=== PATIENT | female | born 1975 | race Caucasian/White ===

== ENCOUNTER 2017-12-11 20:45 | Observation (INO) | payer MEDICAID, OTHER ==
[~2017-12-11] VITALS: Ht 165.1 cm; Wt 84.0 kg
[~2017-12-11 20:45] MED LIST: PRED20 PO; RANI150 PO
[2017-12-11 21:00] VITALS: BP 194/84; PULSE 90; RESP 18; TEMP 98.8
[2017-12-11] MEDS ORDERED: SODIUM CHLORIDE 0.9% FLUSH 10 ML FLUSH IVF PRN (21:30)
--- NOTE | 2017-12-11 21:30 | PD ---
HPI Chief Complaint: Cardiac Complaint Time Seen by Provider: 21:17 Travel History International Travel<30 days: No Contact w/Intl Traveler<30days: No Traveled to known affect area: No History of Present Illness HPI 42-year-old female presents to the emergency department by private transportation the care of her spouse for evaluation of dizziness not feeling well left-sided neck pain and tingling to the left upper extremity. Patient has had symptoms for a while but worsened over the past 2 days. Patient also complains of left-sided chest pain radiating into the left subscapular region. Patient states she went to her chiropractor for an adjustment yesterday felt somewhat better but symptoms are persistent. Patient taken a total of 3 doses of 81 mg aspirin in the last 24 hours. Patient reports no symptom relief after aspirin use. Patient denies fever chills sinus pressure drainage sore throat earache neck stiffness shortness of breath sweats nausea vomiting abdominal pain flank pain upper or lower extremity numbness tingling weakness except for the intermittent tingling that she is experienced for some time to the left upper extremity. Patient had no change in mentation. Patient has had 5/10 intensity headache is not sudden onset thunderclap or worst ever. Patient denies any headache pain at this time does note some not feeling well and not feeling herself that she describes as a 2/10 discomfort. Patient had no near fall and no near-syncope no syncope and no balance disturbance. Patient unknown history of hypertension denies known history of dyslipidemia diabetes tobaccoism has history of CAD with father starting heart disease in his 40s and having 5 vessel CABG at age 55. [facility] Past Medical History Narrative Medical anemia, pud, [id number]; no tobacco, no alcohol, no substance use Anemia: Yes Cancer: No Cardiovascular Problems: No Endocrine: No Genitourinary: No Immune Disorder: No Musculoskeletal: No Neurologic: No Psychiatric: No Reproductive: No Respiratory: No Ulcer: Yes ?: Not LMP: 11/17/17 : 2 Para: 2 Social History Alcohol Use: No Tobacco Use: No Substance Use: No Allergies-Medications (Allergen,Severity, Reaction): Coded Allergies: No Known Allergies (Verified Allergy, Unknown, none, 12/11/17) Reported Meds & Prescriptions Reported Meds & Active Scripts Active Deltasone 20 Mg Tab (Prednisone) 20 Mg Tab 40 Mg PO DAILY 3 Days Zantac 150 Mg Tab (Ranitidine HCl) 150 Mg Tab 150 Mg PO BID 10 Days Review of Systems Except as stated in HPI: all other systems reviewed are Neg General / Constitutional: No: Fever, Chills Eyes: No: Diploplia, Blurred Vision, Visual changes HENT: Positive: Headaches, Vertigo, Neck Pain (left sided), No: Lightheadedness , Congestion, Neck Stiffness Cardiovascular: Positive: Chest Pain or Discomfort (left sided), No: Palpitations, Diaphoresis, Syncope Respiratory: No: Cough, Shortness of Breath, Wheezing Gastrointestinal: No: Nausea, Vomiting, Diarrhea, Abdominal Pain Genitourinary: No: Dysuria, Flank Pain Musculoskeletal: Positive: Pain (LUE), No: Myalgias, Arthralgias, Limited ROM Skin: No Rash Neurologic: Positive: Weakness, Dizziness, Headache, Paresthesia (LUE), No: Syncope, Focal Abnormalities, Coordination Problem, Ataxia, Change in Mentation , Slurred Speech Psychiatric: No: Anxiety Endocrine: No: Heat Intolerance Hematologic/Lymphatic: No: Lymph Node Enlargement Physical Exam Narrative GENERAL: Well-developed well-nourished female no acute distress no respiratory distress; GCS 15 SKIN: Warm and dry. HEAD: Atraumatic. Normocephalic. EYES: Pupils equal and round. No scleral icterus. No injection or drainage. ENT: No nasal bleeding or discharge. Mucous membranes pink and moist. NECK: Trachea midline. No JVD. Supple no meningismus no nuchal rigidity; no midline tenderness to direct palpation along the cervical spine no bony step- off. Reproducible tenderness along the left trapezius musculature. CARDIOVASCULAR: Regular rate and rhythm. Radial dorsalis pedis pulses 2+ to palpation bilaterally. RESPIRATORY: No accessory muscle use. Clear to auscultation. Breath sounds equal bilaterally. GASTROINTESTINAL: Abdomen soft, non-tender, nondistended. Hepatic and splenic margins not palpable. MUSCULOSKELETAL: Extremities without clubbing, cyanosis, or edema. No obvious deformities. NEUROLOGICAL: Awake and alert. GCS 15 per no obvious cranial nerve deficits. Motor grossly within normal limits. Five out of 5 muscle strength in the arms and legs. No pronator drift. No limb ataxia. DTRs 2+ and equal bilaterally. Normal speech. PSYCHIATRIC: Appropriate mood and affect; insight and judgment normal. Data Data Last Documented VS Vital Signs Date Time Temp Pulse Resp B/P (MAP) Pulse Ox O2 Delivery O2 Flow Rate FiO2 12/11/17 21:24 87 15 99 Room Air 12/11/17 21:00 98.8 194/84 (120) Orders Orders Electrocardiogram (12/11/17 ) Electrocardiogram (12/11/17 21:17) Complete Blood Count With Diff (12/11/17 21:17) Comprehensive Metabolic Panel (12/11/17 21:17) Magnesium (Mg) (12/11/17 21:17) Ckmb (Isoenzyme) Profile (12/11/17 21:17) Troponin I (12/11/17 21:17) Act Partial Throm Time (Ptt) (12/11/17:) Prothrombin Time / Inr (Pt) (12/11/17:) Urinalysis - C+S If Indicated (12/11/17 21:) Chest, Single Ap (12/11/17 21:17) Ct Brain W/O Iv Contrast(Rout) (12/11/17 21:17) Ct Cerv Spine W/O Contrast (12/11/17 21:17) Blood Glucose (12/11/17 21:17) Ecg Monitoring (12/11/17 21:17) Iv Access Insert/Monitor (12/11/17 21:17) Oximetry (12/11/17 21:17) Sodium Chloride 0.9% Flush (Ns Flush) (12/11/17 21:30) Orthostatic Vital Signs (12/11/17 21:17) Aspirin Chew (Aspirin Chew) (12/11/17 22:30) Ketorolac Inj (Toradol Inj) (12/11/17 22:30) Admit Order (Ed Use Only) (12/11/17 ) Wallpaper Consultant / Telemetry RAMA.Q8H (12/11/17 22:41) Diet Heart Healthy (12/12/17 Breakfast) Activity Oob With Assistance (12/11/17 22:41) Notify Dr: Other (12/11/17 22:41) Activity Bed Rest With Brp (12/11/17 22:41) Vital Signs (Adult) Q4H (12/11/17 22:41) Cardiac Rhythm .As Directed (12/11/17 22:41) Notify Dr: Other .PRN (12/11/17 22:41) Notify Parameters (12/11/17 22:41) Resp Oxygen Nasal Cannula (12/11/17 ) Ckmb (Isoenzyme) Profile (12/12/17 00:40) Ckmb (Isoenzyme) Profile (12/12/17 03:40) Troponin I (12/12/17 00:40) Troponin I (12/12/17 03:40) Electrocardiogram (12/12/17 00:40) Electrocardiogram (12/12/17 03:40) ^ Obtain (12/11/17 22:41) Sodium Chloride 0.9% Flush (Ns Flush) (12/11/17 22:45) Sodium Chloride 0.9% Flush (Ns Flush) (12/12/17 09:00) Nitroglycerin Sl (Nitrostat Sl) (12/11/17 22:45) Aspirin (Aspirin) (12/12/17 09:00) Wallpaper Consultant / Telemetry RAMA.Q8H (12/11/17 22:41) Labs Laboratory Tests Test 12/11/17 21:41 White Blood Count 8.7 TH/MM3 Red Blood Count 5.18 MIL/MM3 Hemoglobin 10.8 GM/DL Hematocrit 34.1 % Mean Corpuscular Volume 65.8 FL Mean Corpuscular Hemoglobin 20.8 PG Mean Corpuscular Hemoglobin Concent 31.7 % Red Cell Distribution Width 19.0 % Platelet Count 286 TH/MM3 Mean Platelet Volume 7.9 FL Neutrophils (%) (Auto) 65.3 % Lymphocytes (%) (Auto) 25.8 % Monocytes (%) (Auto) 7.0 % Eosinophils (%) (Auto) 1.5 % Basophils (%) (Auto) 0.4 % Neutrophils # (Auto) 5.7 TH/MM3 Lymphocytes # (Auto) 2.2 TH/MM3 Monocytes # (Auto) 0.6 TH/MM3 Eosinophils # (Auto) 0.1 TH/MM3 Basophils # (Auto) 0.0 TH/MM3 CBC Comment DIFF FINAL Differential Comment Prothrombin Time 10.5 SEC Prothromb Time International Ratio 1.0 RATIO Activated Partial Thromboplast Time 25.7 SEC Blood Urea Nitrogen 10 MG/DL Creatinine 0.78 MG/DL Random Glucose 83 MG/DL Total Protein 8.3 GM/DL Albumin 4.0 GM/DL Calcium Level 8.9 MG/DL Magnesium Level 2.2 MG/DL Alkaline Phosphatase 82 U/L Aspartate Amino Transf (AST/SGOT) 14 U/L Alanine Aminotransferase (ALT/SGPT) 29 U/L Total Bilirubin 0.4 MG/DL Sodium Level 139 MEQ/L Potassium Level 3.7 MEQ/L Chloride Level 105 MEQ/L Carbon Dioxide Level 26.2 MEQ/L Anion Gap 8 MEQ/L Estimat Glomerular Filtration Rate 81 ML/MIN Total Creatine Kinase 63 U/L Troponin I LESS THAN 0.02 NG/ML MDM Medical Decision Making Medical Screen Exam Complete: Yes Emergency Medical Condition: Yes Medical Record Reviewed: Yes Interpretation(s) EKG: Normal sinus rhythm rate [address] elevation injury pattern or ectopy noted CBC & BMP Diagram 12/11/17 21:41 Total Protein 8.3 H, Albumin 4.0, Calcium Level 8.9, Magnesium Level 2.2, Alkaline Phosphatase 82, Aspartate Amino Transf (AST/SGOT) 14 L, Alanine Aminotransferase (ALT/SGPT) 29, Total Bilirubin 0.4 Vital Signs Date Time Temp Pulse Resp B/P (MAP) Pulse Ox O2 Delivery O2 Flow Rate FiO2 12/11/17 21:24 87 15 99 Room Air 12/11/17 21:00 98.8 90 18 194/84 (120) Troponin I: Less than 0.02, not elevated Differential Diagnosis Dizziness, uncontrolled hypertension, chest pain, atypical chest pain, ACS, CO, aortic dissection, TIA, CVA, musculoskeletal pain Narrative Course Patient placed on food editor with continuous pulse oximetry IV access obtained specimens collected and sent for resulting Patient risk factor profile hypertension untreated, premature onset heart disease father 5 way bypass at age 55 with heart disease in 40s EKG sinus rhythm no acute injury pattern change; troponin I less than 0.02, not elevated CK 63, not elevated Patient given aspirin 162 mg 1 dose and is aware of plan for observation admission to chest pain center per protocol; patient with spouse at bedside is agreeable to observation admission Physician Communication Physician Communication OBS per [facility] protocol Diagnosis Primary Impression: Chest pain Admitting Information Admitting Physician Requests: Observation Marsha Walker MD Dec 11, 2017 21:30
[2017-12-11 21:53] LABS: AUTOMATED NEUTROPHIL # 5.7 TH/MM3 (1.8-7.7); BASOPHIL % 0.4 % (0.0-2.0); EOSINOPHIL # 0.1 TH/MM3 (0-0.4); EOSINOPHIL % 1.5 % (0.0-4.0); HEMATOCRIT 34.1 % (35.0-46.0); HEMOGLOBIN 10.8 GM/DL (11.6-15.3); LYMPH % 25.8 % (9.0-44.0); LYMPHOCYTE # 2.2 TH/MM3 (1.0-4.8); MEAN CELL VOLUME 65.8 FL (80.0-100.0); MEAN CORPUSCULAR HEMOGLOBIN 20.8 PG (27.0-34.0); MEAN CORPUSCULAR HGB CONC 31.7 % (32.0-36.0); MEAN PLATELET VOLUME 7.9 FL (7.0-11.0); MONOCYTE # 0.6 TH/MM3 (0-0.9); NEUT % 65.3 % (16.0-70.0); PLATELET COUNT 286 TH/MM3 (150-450); RED BLOOD COUNT 5.18 MIL/MM3 (4.00-5.30); WHITE BLOOD COUNT 8.7 TH/MM3 (4.0-11.0)
[2017-12-11 22:04] LABS: PROTHROMBIN TIME - PATIENT 10.5 SEC (9.8-11.6)
--- NOTE | 2017-12-11 22:05 | RADRPT ---
EXAM DATE/TIME: 12/11/2017 21:49 [facility] COMPARISON: No previous studies available for comparison. INDICATIONS : Dizziness. RADIATION DOSE: 56.35 CTDIvol (mGy) MEDICAL HISTORY : Anemia. SURGICAL HISTORY : None. ENCOUNTER: Initial ACUITY: 2 weeks PAIN SCALE: 0/10 LOCATION: cranial TECHNIQUE: Multiple contiguous axial images were obtained of the head. Using automated exposure control and adj ustment of the mA and/or kV according to patient size, radiation dose was kept as low as reasonably a chievable to obtain optimal diagnostic quality images. DICOM format image data is available electro nically for review and comparison. FINDINGS: CEREBRUM: The ventricles are normal for age. No evidence of midline shift, mass lesion, hemorrhage or acute in farction. No extra-axial fluid collections are seen. POSTERIOR FOSSA: The cerebellum and brainstem are intact. The 4th ventricle is midline. The cerebellopontine angle i s unremarkable. EXTRACRANIAL: The visualized portion of the orbits is intact. SKULL: The calvaria is intact. No evidence of skull fracture. CONCLUSION: Normal examination. Willam Delgado MD on December 11, 2017 at 22:02 Board Certified Radiologist. This report was verified electronically.
--- NOTE | 2017-12-11 22:07 | RADRPT ---
EXAM DATE/TIME: 12/11/2017 21:49 [facility] COMPARISON: No previous studies available for comparison. INDICATIONS : Dizziness, neck pain. RADIATION DOSE: 19.72 CTDIvol (mGy) MEDICAL HISTORY : Anemia. SURGICAL HISTORY : None. ENCOUNTER: Initial ACUITY: 2 weeks PAIN SCALE: 6/10 LOCATION: neck TECHNIQUE: Volumetric scanning of the cervical spine was performed. Multiplanar reconstructions in the sagittal, coronal and oblique axial planes were performed. Using automated exposure control and adjustment o f the mA and/or kV according to patient size, radiation dose was kept as low as reasonably achievable to obtain optimal diagnostic quality images. DICOM format image data is available electronically f or review and comparison. FINDINGS: There is mild upper cervical kyphosis. No significant spondylolisthesis. There is no evidence of frac ture or destructive change. No bony canal or foraminal compromise is identified. There is no evidence of paraspinal mass or hematoma. CONCLUSION: Mild cervical kyphosis. No acute bony findings. Willam Delgado MD on December 11, 2017 at 22:03 Board Certified Radiologist. This report was verified electronically.
--- NOTE | 2017-12-11 22:12 | RADRPT ---
EXAM DATE/TIME: 12/11/2017 21:59 [facility] COMPARISON: No previous studies available for comparison. INDICATIONS : Left sided chest pain. MEDICAL HISTORY : None. SURGICAL HISTORY : None. ENCOUNTER: Initial ACUITY: 1 day PAIN SCORE: 4/10 LOCATION: chest FINDINGS: A single view of the chest demonstrates the lungs to be symmetrically aerated without evidence of mas s, infiltrate or effusion. The cardiomediastinal contours are unremarkable. Osseous structures are intact. CONCLUSION: No acute disease. Willam Delgado MD on December 11, 2017 at 22:09 Board Certified Radiologist. This report was verified electronically.
[2017-12-11 22:26] LABS: ALT (GPT) 29 U/L (10-53); AST (GOT) 14 U/L (15-37); BICARBONATE 26.2 MEQ/L (21.0-32.0); BLOOD UREA NITROGEN 10 MG/DL (7-18); CALCIUM 8.9 MG/DL (8.5-10.1); CHLORIDE 105 MEQ/L (98-107); CREATININE 0.78 MG/DL (0.50-1.00); GLOMERULAR FILTRATION RATE 81 ML/MIN (>89); GLUCOSE,RANDOM 83 MG/DL (74-106); MAGNESIUM 2.2 MG/DL (1.5-2.5); SODIUM (NA) 139 MEQ/L (136-145)
[2017-12-11] MEDS ORDERED: KETOROLAC TROMETHAMINE 30 MG/ML (IVP) VIAL IV PUSH ONE (22:30)
[2017-12-11] MEDS ORDERED: ASPIRIN 81 MG CHEW TAB CHEW ONE (22:30)
[2017-12-11 22:31] LABS: ALKALINE PHOSPHATASE 82 U/L (45-117); TOTAL BILIRUBIN ADULT 0.4 MG/DL (0.2-1.0); TOTAL PROTEIN 8.3 GM/DL (6.4-8.2); TROPONIN I LESS THAN 0.02 NG/ML (0.02-0.05)
[2017-12-11] MEDS ORDERED: NITROGLYCERIN 0.4 MG SL 25 TABS/BTL SL PRN (22:45)
[2017-12-11] MEDS ORDERED: SODIUM CHLORIDE 0.9% FLUSH 10 ML FLUSH IV FLUSH PRN (22:45)
[2017-12-11 23:00] LABS: BACTERIA, URINE RARE /hpf; BILIRUBIN, URINE NEG (NEG); BLOOD, URINE NEG (NEG); GLUCOSE,URINE NEG (NEG); KETONE, URINE NEG (NEG); MUCUS URINE FEW /lpf (OCC); NITRITE,URINE NEG (NEG); SQUAMOUS EPITHELIAL CELL URINE 5 /hpf (0-5); URINE COLOR YELLOW (YELLW/STRAW); URINE LEUKOCYTE ESTERASE NEG (NEG)
[2017-12-12] VITALS (8 sets, daily range): BP systolic 132–153; BP diastolic 62–77; PULSE 66–85; RESP 15–20; TEMP 98–98.1; O2SAT 98–100
[2017-12-12 01:10] LABS: TROPONIN I LESS THAN 0.02 NG/ML (0.02-0.05)
[2017-12-12 04:28] LABS: TROPONIN I LESS THAN 0.02 NG/ML (0.02-0.05)
[2017-12-12] MEDS ORDERED: MECLIZINE HCL 25 MG TAB PO ONE (08:30)
[2017-12-12] MEDS ORDERED: ASPIRIN 325 MG TAB PO SCH (09:00)
[2017-12-12] MEDS ORDERED: SODIUM CHLORIDE 0.9% FLUSH 10 ML FLUSH IV FLUSH SCH (09:00)
--- NOTE | 2017-12-12 09:44 | HHI.HP ---
[facility] Primary Care Physician Claude Weller M.D. Chief Complaint Chest pain History of Present Illness This is a 42-year-old female the presents to ED with plan of dizziness and chest discomfort. Patient states her symptoms began a little over week ago. She has been feeling imminently dizzy. Seems to be worse nor brought on with certain position changes. She is unsteady when it happens. At times she may or may not have had a headache during this. She also complains of having a left upper chest radiating to left upper arm intermittently for the last 2 days. She thought that it may be related to her neck and saw a chiropractor and had manipulation thought she felt better for a little bit but symptoms persisted. Currently denies chest discomfort. She denies having any syncopal episodes. Denies fevers or chills. Denies . Review of Systems General: Patient denies fevers, chills recent, and recent travel HEENT: Complained of headache. Patient denies sore throat, difficulty swallowing. Cardiovascular: Has the chest discomfort as mentioned above. Denies sensation of heart beating rapidly or irregularly. No syncope. Denies diaphoresis. Respiratory: Denies shortness of breath or inspirational chest discomfort. Denies coughing wheezing or hemoptysis. GI: Patient denies nausea, vomiting, diarrhea, abdominal pain, bloody stools. Musculoskeletal: Patient denies joint pain or edema. Denies calf pain or edema. Neurovascular: When of headache. Complaint of dizziness. Patient denies numbness, tingling, weakness in extremities. Endocrine: Denies polyuria and polydipsia. Hematologic: Denies easy bruising. Skin: Denies rash or itching. Past Family Social History Allergies: Coded Allergies: No Known Allergies (Verified Allergy, Unknown, none, 12/11/17) Past Medical History Denies hypertension, hyperlipidemia, diabetes, and CAD. Past Surgical History Noncontributory. Reported Medications Reported Meds & Active Scripts Active Deltasone 20 Mg Tab (Prednisone) 20 Mg Tab 40 Mg PO DAILY 3 Days Zantac 150 Mg Tab (Ranitidine HCl) 150 Mg Tab 150 Mg PO BID 10 Days Active Ordered Medications Current Medications Medications (Trade) Dose Ordered Sig/Hannah Route Start Time Stop Time Status Last Admin (NS Flush) 2 ml UNSCH PRN IVF 12/11/17 21:30 (NS Flush) 2 ml UNSCH PRN IV FLUSH 12/11/17 22:45 (NS Flush) 2 ml BID IV FLUSH 12/12/17 09:00 12/12/17 08:33 (Nitrostat Sl) 0.4 mg Q5M PRN SL 12/11/17 22:45 (Aspirin) 325 mg DAILY PO 12/12/17 09:00 12/12/17 08:33 Family History Her father had a CABG at age 56. Social History Non-smoker. Denies alcohol or illicit drug use. Physical Exam Vital Signs Vital Signs Date Time Temp Pulse Resp B/P (MAP) Pulse Ox O2 Delivery O2 Flow Rate FiO2 12/12/17 08:02 66 15 136/62 (86) 100 Room Air 12/12/17 08:02 15 Room Air 12/12/17 08:02 66 15 136/62 (86) 99 Room Air 12/12/17 00:22 81 15 153/67 (95) 99 Room Air 12/12/17 00:00 99 12/11/17 21:24 87 15 99 Room Air 12/11/17 21:00 98.8 90 18 194/84 (120) Physical Exam GENERAL: This is a well-nourished, well-developed patient, in no apparent distress. Patient speaks in clear complete sentences. Patient is pleasant. HEENT: Head is atraumatic and normocephalic. Neck is supple without lymphadenopathy and trachea is midline. No JVD or carotid bruits. CARDIOVASCULAR: Regular rate and rhythm without murmurs, gallops, or rubs. RESPIRATORY: Clear to auscultation. Breath sounds equal bilaterally. No wheezes , rales, or rhonchi. Chest wall is nontender. No use of accessory muscles. GASTROINTESTINAL: Abdomen is nontender, nondistended. Abdomen soft. No obvious pulsatile mass or bruit. No CVA tenderness. Strong femoral pulses bilaterally. Normal bowel sounds in all quadrants. MUSCULOSKELETAL: Patient is moving upper and lower extremities freely. No calf tenderness or edema, no Homans sign. Strong pulses in upper and lower extremities. NEUROLOGICAL: Patient is alert and oriented. Cranial nerves 2-12 are grossly intact. No focal deficits and speech is clear. SKIN: No rash and turgor is normal. Laboratory Laboratory Tests Test 12/11/17 21:41 12/11/17 22:49 12/12/17 00:40 12/12/17 03:22 White Blood Count 8.7 Red Blood Count 5.18 Hemoglobin 10.8 Hematocrit 34.1 Mean Corpuscular Volume 65.8 Mean Corpuscular Hemoglobin 20.8 Mean Corpuscular Hemoglobin Concent 31.7 Red Cell Distribution Width 19.0 Platelet Count 286 Mean Platelet Volume 7.9 Neutrophils (%) (Auto) 65.3 Lymphocytes (%) (Auto) 25.8 Monocytes (%) (Auto) 7.0 Eosinophils (%) (Auto) 1.5 Basophils (%) (Auto) 0.4 Neutrophils # (Auto) 5.7 Lymphocytes # (Auto) 2.2 Monocytes # (Auto) 0.6 Eosinophils # (Auto) 0.1 Basophils # (Auto) 0.0 CBC Comment DIFF FINAL Differential Comment Prothrombin Time 10.5 Prothromb Time International Ratio 1.0 Activated Partial Thromboplast Time 25.7 Blood Urea Nitrogen 10 Creatinine 0.78 Random Glucose 83 Total Protein 8.3 Albumin 4.0 Calcium Level 8.9 Magnesium Level 2.2 Alkaline Phosphatase 82 Aspartate Amino Transf (AST/SGOT) 14 Alanine Aminotransferase (ALT/SGPT) 29 Total Bilirubin 0.4 Sodium Level 139 Potassium Level 3.7 Chloride Level 105 Carbon Dioxide Level 26.2 Anion Gap 8 Estimat Glomerular Filtration Rate 81 Total Creatine Kinase 63 55 49 Troponin I LESS THAN 0.02 LESS THAN 0.02 LESS THAN 0.02 Urine Color YELLOW Urine Turbidity CLEAR Urine pH 6.0 Urine Specific [place] 1.016 Urine Protein NEG Urine Glucose (UA) NEG Urine Ketones NEG Urine Occult Blood NEG Urine Nitrite NEG Urine Bilirubin NEG Urine Urobilinogen LESS THAN 2.0 Urine Leukocyte Esterase NEG Urine RBC 1 Urine WBC 3 Urine Squamous Epithelial Cells 5 Urine Bacteria RARE Urine Mucus FEW Microscopic Urinalysis Comment CULT NOT INDICATED Result Diagram: 12/11/17214012/11/172140 Imaging Last [address] 12/11/172116 Signed Impressions: Service Date/Time: Monday, December 11, 2017 21:49 - CONCLUSION: Normal examination. Willam Delgado MD Chest X-Ray 12/11/172116 Signed Impressions: Service Date/Time: Monday, December 11, 2017 21:59 - CONCLUSION: No acute disease. Willam Delgado MD Cervical Spine CT 12/11/172116 Signed Impressions: Service Date/Time: Monday, December 11, 2017 21:49 - CONCLUSION: Mild cervical kyphosis. No acute bony findings. Willam Delgado MD Course EKGs are sinus rhythm without significant ST segment depressions or elevations. Caprini VTE Risk Assessment Caprini VTE Risk Assessment: No/Low Risk (score <= 1) Caprini Risk Assessment Model Point Value = 1 Point Value = 2 Point Value = 3 Point Value = 5 Age 41-60 Minor surgery BMI > 25 kg/m2 Swollen legs Varicose veins or History of unexplained or recurrent spontaneous Oral contraceptives or hormone replacement Sepsis (< 1 month) Serious lung disease, including pneumonia (< 1 month) Abnormal pulmonary function Acute myocardial infarction Congestive heart failure (< 1 month) History of inflammatory bowel disease Medical patient at bed rest Age 61-74 Arthroscopic surgery Major open surgery (> 45 min) Laparoscopic surgery (> 45 min) Malignancy Confined to bed (> 72 hours) Immobilizing plaster cast Central venous access Age >= 75 History of VTE Family history of VTE Factor V Leiden Prothrombin [id number] Lupus anticoagulant Anticardiolipin antibodies Elevated serum homocysteine Heparin-induced thrombocytopenia Other congenital or acquired thrombophilia Stroke (< 1 month) Elective arthroplasty Hip, pelvis, or leg fracture Acute spinal cord injury (< 1 month) Prophylaxis Regimen Total Risk Factor Score Risk Level Prophylaxis Regimen 0-1 Low Early ambulation 2 Moderate Order ONE of the following: *Sequential Compression Device (SCD) *Heparin 5000 units SQ BID 3-4 Higher Order ONE of the following medications: *Heparin 5000 units SQ TID *Enoxaparin/Lovenox 40 mg SQ daily (WT < 150 kg, CrCl > 30 mL/min) *Enoxaparin/Lovenox 30 mg SQ daily (WT < 150 kg, CrCl > 10-29 mL/min) *Enoxaparin/Lovenox 30 mg SQ BID (WT < 150 kg, CrCl > 30 mL/min) AND/OR *Sequential Compression Device (SCD) 5 or more Highest Order ONE of the following medications: *Heparin 5000 units SQ TID (Preferred with Epidurals) *Enoxaparin/Lovenox 40 mg SQ daily (WT < 150 kg, CrCl > 30 mL/min) *Enoxaparin/Lovenox 30 mg SQ daily (WT < 150 kg, CrCl > 10-29 mL/min) *Enoxaparin/Lovenox 30 mg SQ BID (WT < 150 kg, CrCl > 30 mL/min) AND *Sequential Compression Device (SCD) Assessment and Plan Assessment and Plan * Chest pain: Patient has had serial cardiac enzymes and EKGs for ruling out purposes. She was seen by Dr. Neel Huston of cardiology in the [facility] and will undergo a Lexiscan. Patient be discharged home if her Lexiscan is nonischemic with instructions to follow-up with PCP and to return to ED for interval issues. * Dizziness: Patient was given a dose of meclizine and will reevaluate. Patient can resume medication [id number] after discharge. Patient is stable at this time. She is agreeable to this plan. Rainer Lerner Dec 12, 2017 09:44
--- NOTE | 2017-12-12 09:56 | EKG ---
Date Performed: 12/12/2017 Time Performed: 04:16:25 PTAGE: 42 years EKG: Sinus rhythm NORMAL ECG PREVIOUS TRACING : 12/12/2017 01.03 Since previous tracing, no significant change noted DOCTOR: Neel Huston Interpretating Date/Time 12/12/2017 09:54:45
--- NOTE | 2017-12-12 09:57 | EKG ---
Date Performed: 12/12/2017 Time Performed: 01:03:02 PTAGE: 42 years EKG: Sinus rhythm NORMAL ECG PREVIOUS TRACING : 12/12/2017 01.02 Since previous tracing, no significant change noted DOCTOR: Neel Huston Interpretating Date/Time 12/12/2017 09:55:38
--- NOTE | 2017-12-12 09:58 | EKG ---
Date Performed: 12/11/2017 Time Performed: 21:28:30 PTAGE: 42 years EKG: Sinus rhythm NORMAL ECG PREVIOUS TRACING : 09/11/2015 11.11 Since previous tracing, no significant change noted DOCTOR: Neel Huston Interpretating Date/Time 12/12/2017 09:56:43
[2017-12-12] MEDS ORDERED: REGADENOSON INJ 0.4 MG/5 ML SYR ONE (12:58)
--- NOTE | 2017-12-12 14:07 | RADRPT ---
EXAM DATE/TIME: 12/12/2017 12:21 [place] COMPARISON: No previous studies available for comparison. INDICATIONS : Dizziness and left side neck pain and tingling. Chest pain has gotten worse over past 2 days. Angina. DOSE: 25.7 mCi Tc99m Myoview at stress. 8.7 mCi Tc99m Myoview at rest. 0.4 mg Lexiscan STRESS SYMPTOMS: Flush. EJECTION FRACTION: > 70% MEDICAL HISTORY : None SURGICAL HISTORY : None. ENCOUNTER: Initial ACUITY: 2 days PAIN SCALE: 2/10 LOCATION: Left chest TECHNIQUE: The patient underwent pharmacologic stress with infusion of prescribed dose. Continuous ECG tracing was monitored during stress. Gated SPECT imaging was performed after stress and conventional SPECT i maging was performed at rest. The examination was performed on a SPECT/CT scanner, both attenuation and non-corrected datasets were reviewed. FINDINGS: DISTRIBUTION: The maximum perfused segment at stress is in the lateral wall. PERFUSION STUDY: Small region of focally decreased perfusion during stress in the mid inferior wall, likely artifactua l. GATED STUDY: There is intact wall motion and thickening without hypokinetic or dyskinetic segments. CONCLUSION: 1. Apparent focal decreased perfusion during stress in the mid inferior wall is likely artifactual. R ecommend EKG and clinical correlation. 2. Intact normal wall motion with EF of greater than 70%. RISK CATEGORY: Low (<1% Annual Mortality Rate) Kelby Wilson MD on December 12, 2017 at 14:00 Board Certified Radiologist. This report was verified electronically.
--- NOTE | 2017-12-12 15:07 | HHI.DCPOC ---
Discharge Care Plan Diagnosis: (1) Chest pain (2) Dizziness Goals to Promote Your Health * To prevent worsening of your condition and complications * To maintain your health at the optimal level Directions to Meet Your Goals Take your medications as prescribed Follow your dietary instruction Follow activity as directed Keep your appointments as scheduled Take your immunizations and boosters as scheduled If your symptoms worsen call your PCP, if no PCP go to Urgent Care Center or Emergency Room Smoking is Dangerous to Your Health. Avoid second hand smoke Call the 24-hour hour crisis hotline for domestic abuse at [facility] Lerner Dec 12, 2017 15:07
--- NOTE | 2017-12-14 11:38 | TR ---
Date Performed: 12/12/2017 Time Performed: 12:57:12 DOCTOR: Mitch Plasencia DRUG LIST: CLINICAL HISTORY: REASON FOR TEST: REASON FOR ENDING: OBSERVATION: CONCLUSION: COMMENTS: Lexiscan stress test was performed under standard four minute protocol. Radionuclide was injected one minute prior to ending the test. No electrocardiographic abormalities were present t o suggest ischemia. Nuclear imaging and interpretation are pending.
== END 2017-12-12 15:44 | disposition home or self-care (01) ==
LOC: NEPC 20:45 → NEDA 22:44 → NEDH 12-12 04:35 → NEPHCDU 12-12 10:43
PROVIDERS: ADMIT Internal Medicine Cardiovascular Disease; ATTEND Internal Medicine Cardiovascular Disease
DX: R07.89 Other chest pain (principal); R42 Dizziness and giddiness; M54.2 Cervicalgia; R20.2 Paresthesia of skin; D64.9 Anemia, unspecified; R51 Headache; Z82.49 Family history of ischemic heart disease and other diseases of the circulatory system; Z87.11 Personal history of peptic ulcer disease
CPT/HCPCS: 70450; 71045; 72125; 78452; 80053; 81001; 82550; 83735; 84484; 84703; 85025; 85610; 85730; 93005; 93017; 96374; 99285; A9502; G0378; J1885; J2785